=== PATIENT | female | born 1995 | race African-American/Black ===

== ENCOUNTER 2019-09-29 16:57 | Emergency (ER) | payer SELFPAY ==
[2019-09-29 18:59] LABS: Bilirubin Negative (Negative); Blood, Urine Negative (Negative); Clarity Clear (Clear); Glucose, Urine (Dipstick) Normal (Negative); Leukocyte Negative Leu/uL (Negative); Nitrite Negative (Negative); Protein, Urine (Dipstick) Negative (Neg-Trace)
[2019-09-29 19:04] LABS: Pregnancy Test - Urine (BHCG) POSITIVE (Negative); Pregu Control Background? CLEAR/WHITE (CLR/WHITE); Pregu Control Bar Appear? YES (CONTROL BAR); Specific Gravity 1.019 (1.002-1.036)
[2019-09-29 19:32] LABS: #Basophils 0.1 thou/uL (0.0-0.2); #Lymphocytes 1.9 thou/uL (1.20-3.40); #Monocytes 0.4 thou/uL (0.11-0.59); %Basophils 0.9 % (0.0-1.0); %Eosinophils 0.2 % (0.0-10.0); %Lymphocytes 25.8 % (21.0-51.0); %Monocytes 5.1 % (0.0-10.0); %Neutrophils 67.9 % (42.0-75.0); Hemoglobin 13.4 g/dL (12.0-16.0); Mean Corpuscular Hemoglobin 31.8 pg (27.0-31.0); Mean Corpuscular Volume 96.3 fL (78.0-98.0); Mean Platelet Volume 8.3 fL (7.4-10.4); Platelet Count 218 thou/uL (130-400); RBC Distribution Width 10.9 % (11.5-14.5); Red Blood Cell (RBC) Count 4.21 mill/uL (4.20-5.40); White Blood Cell (WBC) Count 7.4 thou/uL (4.8-10.8)
--- NOTE | 2019-09-29 20:41 | ULT ---
PELVIC ULTRASOUND: 09/29/19 HISTORY: Lower pelvic cramping in a female. TECHNIQUE: Multiplanar gallagher scale and color Doppler images were obtained in a transabdominal and transvaginal pe lvic ultrasound. Spectral analysis of the Doppler waveforms of the ovaries were performed. FINDINGS: An intrauterine gestational sac is seen. This contains a yolk sac. No pole is seen at this time . Mean sac diameter is 1.20 cm which estimates gestational age of 6 weeks, 0 days. There is a small amount of free fluid in the pelvis. Both ovaries are normal in size and appearance a nd demonstrate no internal flow. IMPRESSION: There is an intrauterine gestational sac. No pole is seen at this time and this may just repres ent an early . A follow-up ultrasound may be necessary to ensure viability. POS: EAA
== END 2019-09-29 20:53 | disposition home or self-care (01) ==
LOC: ERS 16:57
DX: O99.89 Other specified diseases and conditions complicating pregnancy, childbirth and the puerperium (principal); R10.30 Lower abdominal pain, unspecified; R11.0 Nausea; O99.341 Other mental disorders complicating pregnancy, first trimester; F41.9 Anxiety disorder, unspecified
CPT/HCPCS: 36415; 76856; 81003; 81025; 84702; 85025; 86900; 86901

== ENCOUNTER 2019-10-25 17:02 | Emergency (ER) | payer SELFPAY ==
[2019-10-25 17:42] LABS: #Lymphocytes 1.4 thou/uL (1.20-3.40); #Monocytes 0.4 thou/uL (0.11-0.59); #Neutrophils 4.2 thou/uL (1.40-6.50); %Basophils 0.6 % (0.0-1.0); %Eosinophils 0.8 % (0.0-10.0); %Lymphocytes 23.2 % (21.0-51.0); %Neutrophils 68.4 % (42.0-75.0); Hemoglobin 11.3 g/dL (12.0-16.0); Mean Corpuscular HGB CONC 34.2 g/dL (32.0-36.0); Mean Corpuscular Hemoglobin 31.3 pg (27.0-31.0); Mean Corpuscular Volume 91.5 fL (78.0-98.0); Mean Platelet Volume 8.3 fL (7.4-10.4); Platelet Count 231 thou/uL (130-400); RBC Distribution Width 10.5 % (11.5-14.5); White Blood Cell (WBC) Count 6.2 thou/uL (4.8-10.8)
[2019-10-25 18:05] LABS: ALT (SGPT) 10 U/L (8-55); AST (SGOT) 12 U/L (5-34); Alkaline Phosphatase 44 U/L (40-110); Anion Gap 11 mmol/L (10-20); BUN (Urea Nitrogen) 6 mg/dL (7.0-18.7); Bilirubin, Total 0.4 mg/dL (0.2-1.2); Calc. Creatinine Clearance 0 mL/min (70-130); Calcium 9.4 mg/dL (7.8-10.44); Carbon Dioxide 23 mmol/L (22-29); Chloride 106 mmol/L (98-107); Estimated GFR-MDRD Greater than 90; Globulin 3.4 g/dL (2.4-3.5); Glucose 97 mg/dL (70-105); Potassium 3.9 mmol/L (3.5-5.1); Protein, Total 7.4 g/dL (6.0-8.3); Sodium 136 mmol/L (136-145)
[2019-10-25 18:18] LABS: Bilirubin Negative (Negative); Blood, Urine Negative (Negative); Clarity Clear (Clear); Glucose, Urine (Dipstick) Normal (Negative); Leukocyte Negative Leu/uL (Negative); Nitrite Negative (Negative); Protein, Urine (Dipstick) 10 mg/dL (Neg-Trace)
--- NOTE | 2019-10-25 18:38 | ULT ---
PELVIC ULTRASOUND: 10/25/19 COMPARISON: None. HISTORY: Spotting in a female. TECHNIQUE: Multiplanar gallagher scale and color Doppler images were obtained in a transabdominal pelvic ultrasound. Spectral analysis of the alpha waveforms of the ovaries were performed. FINDINGS: There is a live intrauterine . Only one pole is seen but there are two structures that look like yolk sacs. A heart rate is detected at 171 beats per minute. [place]-rump length of th e pole is 2.61 cm which estimates gestational age of 9 weeks, 3 days. There is a possible small area of subchorionic hemorrhage noted just adjacent to the gestational sac. The right ovary is not visualized. The left ovary is normal in appearance and demonstrates normal in ternal flow. No free fluid is seen in the pelvis. IMPRESSION: 1. Possible small area of subchorionic hemorrhage. 2. Live intrauterine with estimated age of 9 weeks, 3 days. POS: EAA
== END 2019-10-25 18:58 | disposition home or self-care (01) ==
LOC: ERS 17:02
DX: O20.8 Other hemorrhage in early pregnancy (principal); O99.341 Other mental disorders complicating pregnancy, first trimester; F41.9 Anxiety disorder, unspecified; Z3A.09 9 weeks gestation of pregnancy
CPT/HCPCS: 36415; 76856; 80053; 81003; 84702; 85025; 93976

== ENCOUNTER 2020-04-02 11:14 | Day surgery (SDC) | payer SELFPAY ==
[2020-04-02] MEDS ORDERED: hydrALAZINE 20 MG/ML VIAL SLOW IVP PRN (11:37)
--- NOTE | 2020-04-02 11:52 | PDOC.LDHP ---
Labor and Delivery H&P Chief complaint: contractions HPI: 25 y/o at 32w2d presents with ctx for the last 3 days. Has also had increased discharge and felt a gush of fluid. Denies VB or other concerns. ROS neg for HEENT, cv, pulm, gi, gu, neuro, psych, skin, musculoskeletal or constitutional symptoms other than mentioned above. OB: out of [facility], [place] OB History Details: 1 term , uncomplicated Current complications: none Past Medical History: Epilepsy, no meds or seizures since HS. Current medications: pre-jeremy vitamins Previous surgical history: none Social history: none - Physical Exam Vital signs reviewed and normal: yes General: NAD, resting Lungs: nonlabored breathing Abdomen: gravid Extremeties: no edema FHT: category 1 (140s, mod variability, + accels, no decels) [place] contractions every: none - Vaginal Exam cm dilated: 0 (spec exam negative) Effacement: 0% Station: -3 - OB Labs Blood type: AB RH: positive - Assessment 25 y/o at 32w2d with no e/o SROM or active labor. status reassuring with reactive NST. VP3 pending. - Plan -: D/c home with precautions. Advised to keep all appointments. Will call if VP3 indicates treatment.
[2020-04-02 11:54] VITALS: BMI 22.6
[2020-04-02 12:32] LABS: Amnisure Test No Membranes Rupture (No Rupture)
[2020-04-02 12:33] LABS: Amnisure Internal Control QC ACCEPTABLE (ACCEPTABLE)
[2020-04-02 12:39] LABS: FFN Internal QC Analyzer PASS (PASS); FFN Internal QC Cassette PASS (PASS); Fetal Fibronectin Negative (Negative)
== END 2020-04-02 12:00 | disposition home or self-care (01) ==
LOC: L&D/OP 11:14
PROVIDERS: ATTEND Obstetrics & Gynecology
DX: O47.03 False labor before 37 completed weeks of gestation, third trimester (principal); O23.593 Infection of other part of genital tract in pregnancy, third trimester; B96.89 Other specified bacterial agents as the cause of diseases classified elsewhere; O99.353 Diseases of the nervous system complicating pregnancy, third trimester; G40.909 Epilepsy, unspecified, not intractable, without status epilepticus; Z3A.32 32 weeks gestation of pregnancy
CPT/HCPCS: 82731; 84112; 87480; 87510; 87660; 99285

== ENCOUNTER 2020-09-27 06:44 | Emergency (ER) | payer OTHER ==
[2020-09-27 14:26] LABS: SARS-CoV-2 PCR by NAA Not Detected (NotDetected)
== END 2020-09-27 07:16 | disposition home or self-care (01) ==
LOC: ERS 06:44
DX: R43.8 Other disturbances of smell and taste (principal); Z20.822 Contact with and (suspected) exposure to COVID-19
CPT/HCPCS: 87635; 99283; U0003; U0005

== ENCOUNTER 2021-10-03 18:26 | Emergency (ER) | payer OTHER ==
[2021-10-03] MEDS ORDERED: Ondansetron ODT 4 MG TAB ONE (19:10)
[2021-10-03] MEDS ORDERED: HYDROcodone/Acetaminophen 10/325 mg Tablet ONE (19:10)
== END 2021-10-03 21:38 | disposition home or self-care (01) ==
LOC: ERS 18:26
DX: S97.82XA Crushing injury of left foot, initial encounter (principal); S90.32XA Contusion of left foot, initial encounter; W20.8XXA Other cause of strike by thrown, projected or falling object, initial encounter
CPT/HCPCS: Q0162

== ENCOUNTER 2024-04-05 09:43 | Outpatient (CLI) | payer MEDICAID | END 2024-04-05 09:44 | disposition home or self-care (01) | LOC: ULT 09:43 | DX: R10.2 Pelvic and perineal pain (principal); N85.8 Other specified noninflammatory disorders of uterus | CPT/HCPCS: 76856 ==